=== PATIENT | male | born 1985 | race Caucasian/White ===

== ENCOUNTER 2020-01-12 13:10 | Outpatient (CLI) | payer MEDICARE, SELFPAY ==
--- NOTE | 2020-01-12 14:30 | CT_ITS ---
WS: [id number] CT LUMBAR SPINE, noncontrast. HISTORY: Post Op Check TECHNIQUE: Contiguous 2.5 mm axial imaging are performed. Sagittal and coronal reformats are submitte d and reviewed. All CT scans at [facility] use at least one of these dose optimization te chniques: automated exposure control; mA and/or kV adjustment per patient size (includes targeted exa ms where dose is matched to clinical indication); or iterative reconstruction. IV contrast: None DLP: 2200.61 mGycm COMPARISON: 09/15/2019 RIGHT unilateral posterior fusion hardware at L5-S1. Vertical rods and pedicle screws are intact. The re is a large posterior laminectomy defect with interbody spacer. No subsidence. Mild sclerotic brown es on the endplates of L5 and S1. L1-2: Normal. L2-3: Normal. L3-4: Normal. L4-5: Mild broad-based disc bulging and mild facet joint arthropathy. No significant stenosis. L5-S1: Small RIGHT paracentral disc osteophyte complex is unchanged. Mild contact on the RIGHT S1 ner ve root. Similar to the prior study with no progression. Improving postoperative soft tissue changes posteriorly. Visualized retroperitoneum is normal. CT/CT lumbar spine wo con* [id number] IMPRESSION: 1. Postoperative RIGHT unilateral fusion hardware at L5-S1 with interbody spac er. Large laminectomy defects. Improving postoperative changes. No complication s. 2. Unchanged RIGHT paracentral disc osteophyte complex at L5-S1 with mild cont act on the RIGHT S1 nerve root.
== END 2020-01-12 13:11 | disposition home or self-care (01) ==
LOC: RADWPI 13:14
PROVIDERS: Visit Provider Specialist
DX: Z98.1 Arthrodesis status (principal); M51.17 Intervertebral disc disorders with radiculopathy, lumbosacral region; M25.78 Osteophyte, vertebrae
CPT/HCPCS: 72131

== ENCOUNTER 2020-04-19 07:57 | Outpatient (CLI) | payer MEDICARE, SELFPAY ==
--- NOTE | 2020-04-19 09:00 | CT_ITS ---
WS: [id number] CT LUMBAR SPINE, noncontrast. HISTORY: s/p lumbar fusion TECHNIQUE: Contiguous 2.5 mm axial imaging are performed. Sagittal and coronal reformats are submitte d and reviewed. All CT scans at [facility] use at least one of these dose optimization te chniques: automated exposure control; mA and/or kV adjustment per patient size (includes targeted exa ms where dose is matched to clinical indication); or iterative reconstruction. IV contrast: None DLP: 1951.05 mGycm COMPARISON: 01/12/2020 Postoperative posterior fusion unilateral hardware at the L5-S1 level on the RIGHT. No lucency around the pedicle screws. Hardware is intact with no fractures. Interbody spacer at L5-S1. Small amount of sclerosis in the endplates of L5 and S1 are stable. No lucency or osteomyelitis. Large laminectomy d efects posteriorly at L5. L1-2: Normal. L2-3: Normal. L3-4: Normal. L4-5: Mild broad-based disc bulging centrally and facet arthritis. Ligamentum flavum hypertrophy. No significant stenosis. L5-S1: Osteophytic ridging around the vertebral bodies. There is a RIGHT paracentral disc osteophyte complex encroaching upon the ventral thecal sac and proximal RIGHT foramen. Similar to the prior stud y. Mild contact on the RIGHT S1 nerve root. Visualized retroperitoneum is normal. CT/CT lumbar spine wo con* [id number] IMPRESSION: 1. Unilateral RIGHT L5-S1 fusion hardware and interbody spacer are unchanged. No subsidence or loosening. 2. Unchanged RIGHT paracentral disc osteophyte complex at L5-S1 with mild cont act on the RIGHT S1 nerve root. 3. Large laminectomy defect at the L5 level.
== END 2020-04-19 07:58 | disposition home or self-care (01) ==
LOC: RADWPI 08:04
PROVIDERS: Visit Provider Specialist
DX: Z98.1 Arthrodesis status (principal)
CPT/HCPCS: 72131

== ENCOUNTER → 2020-06-08 13:33 | Outpatient (BNVA) | payer MEDICARE, SELFPAY | PROVIDERS: Visit Provider Licensed Practical Nurse | DX: Z98.1 Arthrodesis status (principal) | CPT/HCPCS: 99213 ==

== ENCOUNTER → 2020-09-07 13:17 | Outpatient (BNVA) | payer MEDICARE, SELFPAY | PROVIDERS: Visit Provider Licensed Practical Nurse | DX: Z98.1 Arthrodesis status (principal) | CPT/HCPCS: 99213 ==

== ENCOUNTER → 2020-10-04 14:35 | Outpatient (BNVA) | payer MEDICARE, SELFPAY | PROVIDERS: Visit Provider Licensed Practical Nurse | DX: Z98.1 Arthrodesis status (principal) | CPT/HCPCS: 99212 ==

== ENCOUNTER 2020-11-21 10:03 | Outpatient (CLI) | payer MEDICARE, SELFPAY ==
--- NOTE | 2020-11-21 10:17 | CT_ITS ---
WS: [id number] CT LUMBAR SPINE TECHNIQUE: Noncontrast CT of the lumbar spine with coronal and sagittal reformatted images. CLINICAL INFORMATION: S/P FUSION COMPARISON: None. DLP: 2103.[address] scans at [facility] use at least one of these dose optimization techniques: automat ed exposure control; mA and/or kV adjustment per patient size (includes targeted exams where dose is matched to clinical indication); or iterative reconstruction. FINDINGS: Mild lumbar curve. No acute compression. No high-grade central canal stenosis. Right unilateral L5-S1 pedicle screw fixation. Laminectomy defects L5-S1. L1-L2: Normal. L2-L3: No significant disc bulging. Mild facet arthropathy. Spinal canal and foramen are patent. L3-L4: Mild annular bulging. Left eccentric disc bulging with mild left foraminal narrowing. Mild fac et arthropathy. Spinal canal and foramen are patent. L4-L5: Mild annular bulging with slight effacement of the ventral thecal sac. Mild left and no signif icant right foraminal narrowing. Mild facet arthropathy. L5-S1: Postoperative changes interbody fusion. Osteophytic ridging. Mild left and no significant righ t foraminal narrowing. Moderate facet arthropathy. Laminectomy defects. Visualized pelvic bony structures: Normal. Paravertebral soft tissues: Normal. CT/CT lumbar spine wo con* [id number] IMPRESSION: 1. Mild lumbar curve. 2. Stable postoperative changes right L5-S1 with pedicle screw fixation and in terbody fusion. No evidence of hardware loosening. 3. Mild left L3-L4 and left L4-L5 bony foraminal narrowing. 4. Osteophytic ridging L5-S1 slightly encroaches on the right S1 nerve root. 5. Mild left L5-S1 foraminal narrowing.
== END 2020-11-21 10:04 | disposition home or self-care (01) ==
LOC: RADWPI 10:08
PROVIDERS: Visit Provider Licensed Practical Nurse
DX: Z98.1 Arthrodesis status (principal)
CPT/HCPCS: 72131